=== PATIENT | male | born 1985 | race Caucasian/White ===

== ENCOUNTER 2020-01-14 14:45 | Emergency (ER) | payer OTHER ==
[~2020-01-14] VITALS: Ht 160 cm; Wt 70.0 kg
--- NOTE | 2020-01-14 14:57 | NUR ---
BROUGHT IN BY [facility] FROM [facility] FOR CHIEF COMPLAINT OF PALPITATIONS, NO OTHER SYMPTOMS REPORTED.
--- NOTE | 2020-01-14 15:11 | NUR ---
PEE LANG AT BEDSIDE FOR EVALUATION
[2020-01-14 15:41] LABS: BASOPHILS # (AUTO) 0.03 x10^3/uL (0-0.1); BASOPHILS % (AUTO) 1 % (0-1); EOSINOPHILS # (AUTO) 0.04 x10^3/uL (0-0.4); EOSINOPHILS % (AUTO) 1 % (1-7); LYMPHOCYTES # (AUTO) 1.29 x10^3/uL (1-3.4); LYMPHOCYTES % (AUTO) 21 % (22-44); MD NO; MEAN CORPUSCULAR HEMOGLOBIN 32.3 pg (27.5-34.5); MEAN CORPUSCULAR VOLUME 95.1 fL (81-97); MEAN PLATELET VOLUME 9.5 fL (7.4-10.4); MONOCYTES # (AUTO) 0.39 x10^3/uL (0.2-0.8); MONOCYTES % (AUTO) 6 % (2-9); NEUTROPHILS # (AUTO) 4.41 x10^3/uL (1.8-6.8); NEUTROPHILS % (AUTO) 72 % (42-75); PLATELET COUNT 184 x10^3/uL (130-400); RED BLOOD COUNT 4.75 x10^6/uL (4.38-5.82); RED CELL DISTRIBUTION WIDTH 12.8 % (9.4-14.8)
[2020-01-14 15:44] LABS: ALBUMIN 3.9 g/dL (3.4-5.0); ANION GAP 4 mmol/L (5-15); CALCIUM 8.4 mg/dL (8.5-10.1); CHLORIDE 110 mmol/L (98-107); CREATININE 0.89 mg/dL (0.7-1.3)
[2020-01-14 15:49] LABS: T4 (THYROXINE) 8.9 mcg/dL (4.5-12.1); TROPONIN I < 0.015 ng/mL (0.000-0.045)
--- NOTE | 2020-01-14 16:27 | NUR ---
PT RESTING IN BED, GUARDS AT BEDSIDE.
[2020-01-14 17:08] VITALS: BP 130/98
--- NOTE | 2020-01-14 17:08 | NUR ---
NAUN GARNICA AT BEDSIDE
== END 2020-01-14 17:27 | disposition home or self-care (01) ==
LOC: ED 16:25
DX: R00.2 Palpitations (principal); R42 Dizziness and giddiness; R00.0 Tachycardia, unspecified; R07.9 Chest pain, unspecified; I10 Essential (primary) hypertension
CPT/HCPCS: 36415; 71045; 80048; 82040; 84436; 84443; 84484; 85025; 93005; 99285